=== PATIENT | female | born 1980 | race Two or more races ===

== ENCOUNTER 2023-09-20 09:25 | Outpatient (CLI) | payer OTHER | END 2023-09-20 09:32 | disposition home or self-care (01) | LOC: RX STUDY 09:25 | PROVIDERS: ATTEND Obstetrics & Gynecology | DX: N93.8 Other specified abnormal uterine and vaginal bleeding (principal); N92.0 Excessive and frequent menstruation with regular cycle; N97.1 Female infertility of tubal origin ==